=== PATIENT | female | born 1940 | race Asian ===

== ENCOUNTER → 2024-09-07 12:13 | Outpatient (CLI) | payer MEDICARE, OTHER, SELFPAY ==
--- NOTE | 2024-09-07 12:53 | DI.ECHO.S_ITS ---
[place] [facility] : : [id number] : : [place] : : [id number] : : Phone: [phone] Echocardiogram Report + + :Name: JUDIE HYDE Study Date: 09/07/2024 Height: 61 in : :[facility] ReadingLocation: Weight: 163 lb : : Gender: Female BSA: 1.7 m2 : :: 1940 Age: 84 yrs BP: 140/70 mmHg: :Reason For Study: TAVR : :Ordering Physician: CULLEN, : :JOAQUÍN Performed By: Jaclyn Jasso : :Referring: JOAQUÍN BERMAN : + + Interpretation Summary The left ventricle is normal in size. The left ventricle is hyperdynamic. The ejection fraction is estimated to be 75-80%. A mid intracavitary gradient is suspected MV E/A: 0.65 Med Peak E' Hair: 4.9 cm/sec E/E' med: 16.6 The right ventricle is grossly normal size. The right ventricular systolic function is normal. There is moderate to severe mitral annular calcification. The mitral valve mean gradient is 2.28 mmHg. There is mild mitral stenosis. There is a bioprosthetic aortic valve. The prosthetic aortic valve is well-seated. The prosthetic aortic valve is not well visualized. The peak aortic velocity is 2.28 m/sec. The peak aortic velocity on the previous exam was 2.1 m/sec. The IVC is of normal diameter and collapses greater than 50% with a sniff. This suggests a low right atrial pressure of 3 mm Hg. Procedure: A two-dimensional transthoracic echocardiogram with color flow and Doppler was performed. Images from the parasternal window were difficult to obtain and are suboptimal in quality. Comparison is made with the echocardiogram of 09/23/2023. The study quality was technically difficult. The patient was in sinus rhythm with heart rates between 63-70 bpm during the exam. Left Ventricle: The left ventricle is normal in size. Left ventricular wall thickness is mildly increased. The left ventricle is hyperdynamic. The ejection fraction is estimated to be 75-80%. A mid intracavitary gradient is suspected. There are no focal wall motion abnormalities. MV E/A: 0.65 Med Peak E' Hair: 4.9 cm/sec E/E' med: 16.6. Diastolic parameters suggest probable elevated filling pressures. Right Ventricle: The right ventricle is grossly normal size. The right ventricular systolic function is normal. Atria: The left atrium is mildly dilated. The left atrium has remained unchanged in size since the prior echo exam. Right atrial size is normal. There is no Doppler evidence for an interatrial shunt. Mitral Valve: The mitral valve leaflets are mildly calcified. There is moderate to severe mitral annular calcification. The mitral valve mean gradient is 2.28 mmHg. There is mild mitral stenosis. There is trace mitral regurgitation. Aortic Valve: There is a bioprosthetic aortic valve. The prosthetic aortic valve is well-seated. The prosthetic aortic valve is not well visualized. The peak aortic velocity is 2.28 m/sec. The aortic valve mean gradient is 10.8 mmHg. The peak aortic velocity on the previous exam was 2.1 m/sec. No aortic regurgitation is present. Tricuspid Valve: The tricuspid valve is not well visualized, but is grossly normal. There is a trace or physiologic amount of tricuspid regurgitation. Pulmonary artery pressures cannot be estimated because of the lack of a measurable TR jet velocity. Pulmonic Valve: The pulmonic valve is not well visualized. There is no pulmonic valvular regurgitation. Great Vessels: The dimensions of the ascending aorta are normal. The IVC is of normal diameter and collapses greater than 50% with a sniff. This suggests a low right atrial pressure of 3 mm Hg. Pericardium/ Pleura There is no pericardial effusion. There is an anterior echo-free space consistent with a fat pad. There is no pleural effusion. MMode/2D Measurements & Calculations LVIDd: 4.6 cm LVOT diam: 2.2 cm LVIDs: 3.3 cm asc Aorta Diam: 3.1 cm FS: 27.8 % Ao Arch Diam (Prox Trans): 2.3 cm IVSd: 1.2 cm LVPWd: 0.85 cm LV fagan. diameter/BSA (cm/m^2): 2.6 LV sys. diameter/BSA (cm/m^2): 1.9 LA A2 area: 21.5 cm2 RA long axis: 4.9 cm LA A4 area: 17.0 cm2 RA area: 13.4 cm2 LA length (vol): 5.1 cm RA vol: 31.0 ml LA vol: 60.2 ml RA : 17.9 ml/m2 LA vol index: 34.8 ml/m2 IVC diam: 1.8 cm RVD1 (basal): 3.3 cm TAPSE: 1.9 cm Doppler Measurements & Calculations Ao V2 max: 228.2 cm/sec LVOT Max Hair: 124.1 cm/sec Ao V2 mean: 153.2 cm/sec LV V1 max P.2 mmHg Ao max P.8 mmHg LV V1 VTI: 28.8 cm Ao mean P.8 mmHg SUZETTE(I,D): 2.7 cm2 Ao V2 VTI: 40.2 cm SUZETTE(V,D): 2.0 cm2 sev ratio: 0.72 SUZETTE indexed to BSA (cm^2/m^2): 1.5 MV E max hair: 81.8 cm/sec PA V2 max: 125.6 cm/sec MV A max hair: 126.1 cm/sec PA V2 mean: 86.5 cm/sec MV E/A: 0.65 PA mean P.4 mmHg Med Peak E' Hair: 4.9 cm/sec PA pr(Accel): 43.0 mmHg E/E' med: 16.6 Lat Peak E' Hair: 6.9 cm/sec E/E' lat: 11.8 E/e' average: 14.2 MV dec time: 0.37 sec MVA(VTI): 2.6 cm2 MV V2 mean: 76.3 cm/sec SV(LVOT): 106.9 ml MV mean P.8 mmHg MV V2 VTI: 40.8 cm Reading Physician:04:09 PM
== END ==
PROVIDERS: Family Provider Family Medicine; PCP Nurse Practitioner Family; Referring Provider Internal Medicine Cardiovascular Disease; Visit Provider Internal Medicine Cardiovascular Disease
DX: I05.0 Rheumatic mitral stenosis (principal); Z95.2 Presence of prosthetic heart valve
CPT/HCPCS: 93306